=== PATIENT | female | born 1930 | race Caucasian/White ===

== ENCOUNTER 2016-12-26 13:03 | Emergency (ER) | payer BC ==
[~2016-12-26 13:03] MED LIST: AMIT10 PO; ASAB PO; BETIMOL0.5 % OPH; CARDCD120 PO; CARDIZEM LA120 MG PO; CEFT5 PO; CIP5 PO; COREG3 PO; COREG6 PO; COUMADIN3 MG PO; COZ50 PO; DILT-XR120 MG PO; DSS PO; FLECAINIDE100 MG PO; FLECAINIDE150 MG PO; FOSAMAX; FOSAMAX40 MG PO; FOSAMAX70 MG PO; GABAPENTIN PO; JANTOVEN1 MG PO; JANTOVEN2.5 MG PO; JANTOVEN3 MG PO; JANTOVEN5 MG PO; LEVOTHYROXIN25 MCG PO; LIPITOR10 PO; LIPITOR40 PO; LOVENOX60 SC; MYRBETRIQ50 MG PO; NATURA2 OPH; NEUR100 PO; NITROSTAT0.4 MG SL; NORCO1 TA1 PO; NORV5 PO; P5 PO; PEPCID40 MG PO; PRILO PO; REFRESH PLUS0.5 % OPH; SENTAB PO; STOOL SOFTENER OTC PO; TAMBO50 PO; TIMOLOL MAL0.5 % OPH; TOPXL25 PO; VITAMIN D1000 UNI1 PO; VITAMIN D31000 UNIT PO; VITC500 PO; VITE PO
[2016-12-26 13:37] LABS: BASOPHILS 0.1 %; BASOPHILS ABSOLUTE 0.01 10/3/uL (0.0-0.16); EOSINOPHILS 0.5 %; EOSINOPHILS ABSOLUTE 0.04 10/3/uL (0.0-0.53); ER CBC TAT 0 Hrs 03 Mins; HEMATOCRIT 37.6 % (36.0-48.0); HEMOGLOBIN 11.8 g/dL (12.0-16.0); IMMATURE GRANULOCYTES 1.5 %; IMMATURE GRANULOCYTES ABSOLUTE 0.13 10/3/uL (0.0-0.11); LYMPHOCYTES 16.7 %; LYMPHOCYTES ABSOLUTE 1.43 10/3/uL (0.67-4.30); MANUAL DIFF NO %; MEAN CORPUS HGB CONC 31.4 g/dL (32.0-36.0); MEAN CORPUSCULAR HEMOGLOB 27.3 pg (26.0-34.0); MEAN CORPUSCULAR VOLUME 86.8 fL (80-100); MEAN PLATELET VOLUME 9.6 fL (9.2-13.0); MONOCYTES 7.1 %; MONOCYTES ABSOLUTE 0.61 10/3/uL (0.21-1.20); NEUTROPHILS 74.1 %; NEUTROPHILS ABSOLUTE 6.36 10/3/uL (2.02-8.40); PLATELET COUNT 235 10/3/uL (150-400); RBC DISTRIBUTION WIDTH 16.1 % (12.0-16.0); RED CELL COUNT 4.33 10/6/uL (4.0-5.6); WHITE BLOOD CELLS 8.6 10/3/uL (4.5-10.5)
[2016-12-26 13:44] LABS: INTERNATIONAL NORMAL RATI 2.1 UNITS (-); PROTIME (NOT ORD) 23.2 SEC (12.0-14.5)
[2016-12-26 13:48] LABS: CALCIUM, SERUM 9.5 MG/DL (8.5-10.4); CHLORIDE, SERUM 108 MMOL/L (96-112); CO2 (CARBON DIOXIDE) 30 MMOL/L (24-34); CREATININE 0.88 MG/DL (0.55-1.02); GFR AFRICAN AMERICAN 69 ML/MIN (>=60); GFR NON AFRICAN AMERICAN 59 ML/MIN (>=60); POTASSIUM, SERUM 4.4 MMOL/L (3.5-5.3); SODIUM, SERUM 142 MMOL/L (135-148)
[2016-12-26 13:49] LABS: BUN (BLOOD UREA NITROGEN) 18 MG/DL (6-23); GLUCOSE, SERUM 90 MG/DL (60-99)
[2016-12-26 13:59] LABS: EOSINOPHILS 2 %; EOSINOPHILS ABSOLUTE (CALC) 0.17 10/3/uL (0.0-0.53); ER DIFF TAT 0 Hrs 25 Mins; LYMPHOCYTES 15 %; LYMPHOCYTES ABSOLUTE (CALC) 1.29 10/3/uL (0.67-4.30); NEUTROPHILS ABSOLUTE (CALC) 7.14 10/3/uL (2.02-8.40); PLATELET ESTIMATE ADQ (ADEQUATE); RBC MORPHOLOGY NORM (NORMAL); SEGMENTED NEUTROPHIL (0) 83 %; TOTAL NUCLEATED CELLS 100
== END 2016-12-26 15:55 | disposition home or self-care (01) ==
LOC: ER 13:03
PROVIDERS: Physician Assistant
DX: I80.3 Phlebitis and thrombophlebitis of lower extremities, unspecified (principal); I48.91 Unspecified atrial fibrillation; Z88.0 Allergy status to penicillin; Z88.2 Allergy status to sulfonamides; Z88.5 Allergy status to narcotic agent; Z79.01 Long term (current) use of anticoagulants; Z79.52 Long term (current) use of systemic steroids; Z79.82 Long term (current) use of aspirin; Z79.899 Other long term (current) drug therapy
CPT/HCPCS: 80048; 85025; 85610; 85730; 93971; 99284